=== PATIENT | female | born 1975 | race Caucasian/White ===

== ENCOUNTER 2018-11-18 15:05 | Emergency (ER) | payer SELFPAY ==
--- NOTE | 2018-11-18 17:39 | RAD REPORT ---
EXAM DESCRIPTION: RAD - Hand Left 3 View - 11/18/2018 5:11 pm CLINICAL HISTORY: Persistent hand pain following trauma 1 month earlier COMPARISON: None. FINDINGS: An oblique fracture is present through the distal aspect of the fifth middle phalanx. Dist al aspect of the fracture reaches the articular surface at the DIP joint. The small triangular shaped fracture on the radial side is depressed 1- 2 mm. This creates a slight radial angulation of the fif th distal phalanx. Fracture is partially healed. There is new bone deposition along the fracture plan e. The fifth proximal and distal phalanges show no acute findings. No displacement or angulation in t he AP plane. Remainder the hand shows no acute or suspicious finding. No foreign body or other soft tissue abnorma lity. IMPRESSION: Partially healed fracture fifth middle phalanx as detailed.
--- NOTE | 2018-11-18 17:53 | ER ---
Nurse's Notes [facility] Name: Erika Pritchett Age: 42 yrs Sex: Female : 1975 Arrival Date: 11/18/2018 Time: 15:08 Bed 12 Private MD: Diagnosis: Subacute fracture of left 5th phalanx Presentation: 11/18 15:10 Presenting complaint: Patient states: About a month and half ago I thought I jammed my la1 left pinky finger but it has not gotten better and Im not sure what is going on with it. Transition of care: patient was not received from another setting of care. Onset of symptoms was November 18, 2018. Risk Assessment: Do you want to hurt yourself or someone else? Patient reports no desire to harm self or others. Initial Sepsis Screen: Does the patient meet any 2 criteria? No. Patient's initial sepsis screen is negative. Does the patient have a suspected source of infection? No. Patient's initial sepsis screen is negative. Care prior to arrival: None. 15:10 Method Of Arrival: Ambulatory la1 15:10 Acuity: SREE 4 la1 Triage Assessment: 17:10 Injury Description:. iw 17:15 General: Appears in no apparent distress. Behavior is calm, cooperative. 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 - Social history:: Smoking status: Patient uses tobacco products, smokes one-half pack cigarettes per day. - Ebola Screening: : No symptoms or risks identified at this time. Screenin:10 Abuse screen: Denies threats or abuse. Denies injuries from another. Nutritional iw screening: No deficits noted. Tuberculosis screening: No symptoms or risk factors identified. Fall Risk None identified. Assessment: 17:15 General: Appears in no apparent distress. Behavior is calm, cooperative. Pain: iw Complains of pain in left hand. Neuro: Level of Consciousness is awake, alert, obeys commands, Oriented to person, place. Cardiovascular: Patient's skin is warm and dry. Respiratory: Airway is patent. Derm: Skin is intact, is healthy with good turgor. Musculoskeletal: Range of motion: intact in all extremities. Vital Signs: 15:11 BP 132 / 90; Pulse 116; Resp 18; Temp 97.2; Pulse Ox 98% on R/A; Weight 61.23 kg; la1 Height 5 ft. 5 in. (165.10 cm); 15:11 Body Mass Index 22.46 (61.23 kg, 165.10 cm) la1 ED Course: 15:08 Patient arrived in ED. mr 15:11 Triage completed. la1 15:12 Arm band placed on left wrist. la1 16:23 Devora Camacho, RN is Primary Nurse. iw 16:25 Marcial Brizuela MD is Attending Physician. ps1 17:11 Hand Left 3 View XRAY In Process Unspecified. EDMS 17:11 X-ray completed. Portable x-ray completed in exam room. Patient tolerated procedure la2 well. 18:00 Patient has correct armband on for positive identification. iw 18:14 No provider procedures requiring assistance completed. Patient did not have IV access iw during this emergency room visit. Administered Medications: No medications were administered Outcome: 17:53 Discharge ordered by . ps1 18:14 Discharged to home ambulatory. iw 18:14 Condition: good 18:14 Discharge instructions given to patient, Instructed on discharge instructions, follow up and referral plans. Demonstrated understanding of instructions. 18:15 Patient left the ED. iw Signatures: Dispatcher [employer] Alexa Orellana Devora Camacho, JERRY EDWARDS iw Tal Marsh RN RN la1 Meggan Aviles la2 Marcial Brizuela MD MD ps1
--- NOTE | 2018-11-18 17:53 | EDPHYS ---
Physician Documentation [facility] Name: Erika Pritchett Age: 42 yrs Sex: Female : 1975 Arrival Date: 11/18/2018 Time: 15:08 Bed 12 Private MD: ED Physician Marcial Brizuela HPI: 11/18 17:53 This 42 yrs old Female presents to ER via Ambulatory with complaints of ps1 Finger Injury. 17:53 patient states that she fell over a month ago and did not seek treatment. She has pain ps1 and deformity of left 5th digit. She is right hand dominant. She got her finger caught on her shirt and exacerbated her pain. . 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 - Social history:: Smoking status: Patient uses tobacco products, smokes one-half pack cigarettes per day. - Ebola Screening: : No symptoms or risks identified at this time. ROS: 17:53 Constitutional: Negative for fever, chills, and weight loss, Eyes: Negative for injury, ps1 pain, redness, and discharge, Cardiovascular: Negative for chest pain, palpitations, and edema, Respiratory: Negative for shortness of breath, cough, wheezing, and pleuritic chest pain, Abdomen/GI: Negative for abdominal pain, nausea, vomiting, diarrhea, and constipation, Skin: Negative for injury, rash, and discoloration, Neuro: Negative for headache, weakness, numbness, tingling, and seizure. 17:53 MS/extremity: Positive for injury or acute deformity. Exam: 17:53 Constitutional: This is a well developed, well nourished patient who is awake, alert, ps1 and in no acute distress. Head/Face: Normocephalic, atraumatic. Eyes: Pupils equal round and reactive to light, extra-ocular motions intact. Lids and lashes normal. Conjunctiva and sclera are non-icteric and not injected. ENT: Nares patent. No nasal discharge, no septal abnormalities noted. Tympanic membranes are normal and external auditory canals are clear. Oropharynx with no redness, swelling, or masses, exudates, or evidence of obstruction, uvula midline. Mucous membranes moist. Chest/axilla: Normal chest wall appearance and motion. Nontender with no deformity. No lesions are appreciated. Cardiovascular: Regular rate and rhythm. No gallops, murmurs, or rubs. Normal PMI, no JVD. No pulse deficits. Respiratory: Lungs have equal breath sounds bilaterally, clear to auscultation and percussion. No rales, rhonchi or wheezes noted. No increased work of breathing, no retractions or nasal flaring. Neuro: Awake and alert, GCS 15, oriented to person, place, time, and situation. Cranial nerves II-XII grossly intact. Sensory grossly intact. 17:53 Musculoskeletal/extremity: Extremities: grossly normal except: noted in the left little finger, dorsal aspect of distal phalanx of left little finger, dorsal aspect of middle phalanx of left little finger and dorsal aspect of proximal phalanx of left little finger: decreased ROM, deformity. Vital Signs: 15:11 BP 132 / 90; Pulse 116; Resp 18; Temp 97.2; Pulse Ox 98% on R/A; Weight 61.23 kg; la1 Height 5 ft. 5 in. (165.10 cm); 15:11 Body Mass Index 22.46 (61.23 kg, 165.10 cm) la1 MDM: 16:36 Patient medically screened. ps1 17:55 Data reviewed: vital signs, nurses notes, radiologic studies, and as a result, I will ps1 discharge patient. Counseling: I had a detailed discussion with the patient and/or guardian regarding: the historical points, exam findings, and any diagnostic results supporting the discharge/admit diagnosis, the need for outpatient follow up, a hand specialist. 11/18 16:09 Order name: Hand Left 3 View XRAY; Complete Time: 17:51 kb Administered Medications: No medications were administered Disposition: 11/18/18 17:53 Discharged to Home. Impression: Subacute fracture of left 5th phalanx. - Condition is Stable. - Discharge Instructions: Finger Fracture, [id number]. - Medication Reconciliation Form, Thank You Letter, Antibiotic Education, Prescription Opioid Use form. - Follow up: Private Physician; When: As needed; Reason: Further diagnostic work-up, Recheck today's complaints, Continuance of care, Re-evaluation by your physician. Follow up: Emergency Department; When: As needed. - Problem is an ongoing problem. - Symptoms are unchanged. Signatures: Dispatcher [employer] Devora Paz RN RN iw Tal Marsh RN RN la1 Marcial Brizuela MD MD ps1 Corrections: (The following items were deleted from the chart) 18:15 17:53 11/18/2018 17:53 Discharged to Home. Impression: Subacute fracture of left 5th iw phalanx. Condition is Stable. Forms are Medication Reconciliation Form, Thank You Letter, Antibiotic Education, Prescription Opioid Use. Follow up: Private Physician; When: As needed; Reason: Further diagnostic work-up, Recheck today's complaints, Continuance of care, Re-evaluation by your physician. Follow up: Emergency Department; When: As needed. Problem is an ongoing problem. Symptoms are unchanged. ps1
== END 2018-11-18 18:15 | disposition home or self-care (01) ==
LOC: ER 15:05
DX: S62.607A Fracture of unspecified phalanx of left little finger, initial encounter for closed fracture (principal); X58.XXXA Exposure to other specified factors, initial encounter; F17.210 Nicotine dependence, cigarettes, uncomplicated
CPT/HCPCS: 99283